=== PATIENT | male | born 1945 | race African-American/Black ===

== ENCOUNTER 2017-05-06 19:20 | Inpatient (IN) | payer MEDICARE, OTHER ==
[~2017-05-06] VITALS: Ht 185.4 cm; Wt 108.0 kg
[~2017-05-06 19:20] MED LIST: HYDR12.529 PO; LISI-186 PO; TAMS0.4C31 PO; ZOLP5TAB2 PO
[2017-05-06] MEDS ORDERED: SODIUM CHLORIDE 0.9% 1,000 ML IV ONE (19:32)
[2017-05-06] MEDS ORDERED: ONDANSETRON HCL 4MG/2ML VIAL IV STA (19:32)
[2017-05-06] MEDS ORDERED: MORPHINE SULFATE 4 MG/ML CPJ (NOT FOR IM USE) IV STA (19:32)
[2017-05-06 19:59] LABS: BASOPHILS % 0.7 % (0.0-2.0); EOSINOPHILS % 0.9 % (0.0-5.0); HEMATOCRIT. 43.6 % (42.0-52.0); LYMPHOCYTES % 20.9 % (20.0-50.0); MEAN CORPUSCULAR HEMOGLOBIN 32.9 pg (28.0-32.0); MEAN CORPUSCULAR VOLUME 95.4 fL (80.0-94.0); MEAN PLATELET VOLUME 7.6 fl (7.4-10.4); MONOCYTES % 4.5 % (2.0-8.0); PLATELET 215 x1000/uL (130-400); RED BLOOD CELL COUNT 4.57 mill/uL (4.7-6.1); RED CELL DISTRIBUTION WIDTH 13.9 % (11.6-14.6)
[2017-05-06 20:08] LABS: INR 1.1; PROTHROMBIN TIME 11.3 sec (9.4-11.6)
[2017-05-06 20:17] LABS: CARBON DIOXIDE 25 mEq/L (21-32); CHLORIDE 105 mEq/L (98-107)
[2017-05-06] MEDS ORDERED: LEVOFLOXACIN 750MG PREMIX 150 ML IV ONE (23:30)
[2017-05-06] MEDS ORDERED: MORPHINE SULFATE 4 MG/ML CPJ (NOT FOR IM USE) IV ONE (23:30)
[2017-05-06] MEDS ORDERED: LORAZEPAM 2MG/ML CPJ IV PRN (23:45)
[2017-05-07] MEDS ORDERED: LEVOFLOXACIN 500MG PREMIX 100 ML IV SCH
[2017-05-07 00:03] LABS: CLARITY URINE CLEAR (CLEAR); COLOR URINE YELLOW (YELLOW); GLUCOSE URINE NEGATIVE (NEGATIVE); KETONES URINE NEGATIVE (NEGATIVE); LEUKOCYTE ESTERASE URINE NEGATIVE (NEGATIVE); NITRITE URINE NEGATIVE (NEGATIVE); OCCULT BLOOD URINE NEGATIVE (NEGATIVE); PH URINE 6.5 (4.5-8.0); PROTEIN URINE NEGATIVE (NEGATIVE); SPECIFIC GRAVITY URINE 1.021 (1.005-1.030); UROBILINOGEN URINE 0.2 E.U./dL (0.2-1.0)
[2017-05-07 00:20] LABS: *AMPHETAMINES SCREEN URINE NEGATIVE (NEGATIVE); *BARBITURATES SCREEN URINE NEGATIVE (NEGATIVE); *BENZODIAZEPINES SCREEN URINE NEGATIVE (NEGATIVE); *COCAINE SCREEN URINE NEGATIVE (NEGATIVE); CANNABINOID URINE SCREEN NEGATIVE (NEGATIVE); METHADONE URINE SCREEN NEGATIVE (NEGATIVE); OPIATES URINE SCREEN PRESUMTIVE POSITIVE (NEGATIVE); PHENCYCLIDINE URINE SCREEN NEGATIVE (NEGATIVE)
[2017-05-07] MEDS ORDERED: PIPERACILLIN/TAZOBACTAM 3.375GM/50ML PREMIX IV NR (01:09)
[2017-05-07 01:25] VITALS: BP 155/77
[2017-05-07 04:00] VITALS: BP 155/77
[2017-05-07] MEDS: SODIUM CHLORIDE 0.9% 1,000 ML IV SCH ×3 (04:23→23:01)
[2017-05-07] MEDS: MORPHINE SULFATE 2 MG/ML CPJ (NOT FOR IM USE) IV PRN ×3 (04:40→16:47)
[2017-05-07] MEDS: METRONIDAZOLE 500 MG PREMIX 100 ML IV SCH ×2 (06:53→15:07)
[2017-05-07 08:00] VITALS: BP 134/70
[2017-05-07] MEDS: ENOXAPARIN 40MG/0.4ML SYR SUBCUT SCH (09:01)
[2017-05-07 12:00] VITALS: BP 140/72
[2017-05-07] MEDS: LISINOPRIL 5MG TABLET PO SCH (13:26)
[2017-05-07] MEDS ORDERED: DEXTROSE 50% WATER 50ML SYRINGE IV PRN (13:45)
[2017-05-07 16:00] VITALS: BP 140/74
[2017-05-07] MEDS: BLOOD SUGAR DIAGNOSTIC STRIP TEST SCH ×2 (17:20→20:09)
[2017-05-07] MEDS: INSULIN LISPRO 100 UNITS/ML SUBCUT SCH ×2 (17:50→20:09)
[2017-05-07 20:00] VITALS: BP 146/65
[2017-05-07] MEDS: TAMSULOSIN HCL 0.4MG SR CAPSULE PO SCH (20:08)
[2017-05-07] MEDS: ACETAMINOPHEN 325MG TABLET PO PRN (20:09)
[2017-05-07] MEDS ORDERED: ZOLPIDEM TARTRATE 5MG TABLET PO PRN (21:00)
[2017-05-07] MEDS: METRONIDAZOLE 500MG TABLET PO SCH (23:49)
[2017-05-07] MEDS: LEVOFLOXACIN 500MG PREMIX 100 ML IV SCH (23:52)
[2017-05-08] VITALS: BP 162/71
[2017-05-08 04:00] VITALS: BP 152/78
[2017-05-08] MEDS: BLOOD SUGAR DIAGNOSTIC STRIP TEST SCH ×4 (06:20→20:48)
[2017-05-08] MEDS: METRONIDAZOLE 500MG TABLET PO SCH ×3 (06:22→21:40)
[2017-05-08 07:46] LABS: BASOPHILS % 0.1 % (0.0-2.0); HEMATOCRIT. 40.2 % (42.0-52.0); HEMOGLOBIN. 13.8 g/dL (14.0-18.0); LYMPHOCYTES % 9.6 % (20.0-50.0); MEAN CORPUSCULAR HEMOGLOBIN 32.9 pg (28.0-32.0); MEAN CORPUSCULAR VOLUME 95.9 fL (80.0-94.0); MEAN PLATELET VOLUME 8.1 fl (7.4-10.4); MONOCYTES % 2.7 % (2.0-8.0); NEUTROPHILS % 87.6 % (40.0-76.0); PLATELET 193 x1000/uL (130-400); RED BLOOD CELL COUNT 4.19 mill/uL (4.7-6.1); RED CELL DISTRIBUTION WIDTH 13.9 % (11.6-14.6)
[2017-05-08 08:00] VITALS: BP 152/77
[2017-05-08] MEDS: MORPHINE SULFATE 2 MG/ML CPJ (NOT FOR IM USE) IV PRN ×3 (08:13→18:44)
[2017-05-08] MEDS: LISINOPRIL 5MG TABLET PO SCH (08:16)
[2017-05-08] MEDS: ENOXAPARIN 40MG/0.4ML SYR SUBCUT SCH (08:17)
[2017-05-08] MEDS: INSULIN LISPRO 100 UNITS/ML SUBCUT SCH ×4 (08:23→20:48)
[2017-05-08 08:27] LABS: CARBON DIOXIDE 26 mEq/L (21-32); CHLORIDE 102 mEq/L (98-107); PHOSPHORUS 1.9 mg/dL (2.5-4.9)
[2017-05-08 12:00] VITALS: BP 140/72
[2017-05-08] MEDS ORDERED: IOHEXOL-300 100 ML BOTTLE ONE (12:00)
[2017-05-08] MEDS ORDERED: SODIUM CHLORIDE 0.9% 10ML VIAL ONE (12:00)
[2017-05-08] MEDS ORDERED: POTASSIUM PHOS,M-BASIC-D-BASIC 30 MMOL in DEXT 5% WATER 500 ML IV NR (13:30)
[2017-05-08 16:00] VITALS: BP 155/73
[2017-05-08] MEDS: ACETAMINOPHEN 325MG TABLET PO PRN (16:18)
[2017-05-08 20:00] VITALS: BP 142/67
[2017-05-08] MEDS: TAMSULOSIN HCL 0.4MG SR CAPSULE PO SCH (20:44)
[2017-05-09] VITALS: BP 150/72
[2017-05-09] MEDS: LEVOFLOXACIN 500MG PREMIX 100 ML IV SCH ×2 (00:15→23:37)
[2017-05-09] MEDS: MORPHINE SULFATE 2 MG/ML CPJ (NOT FOR IM USE) IV PRN ×4 (00:17→16:47)
[2017-05-09 04:00] VITALS: BP 142/86
[2017-05-09] MEDS: METRONIDAZOLE 500MG TABLET PO SCH ×3 (05:53→21:19)
[2017-05-09 06:30] LABS: BASOPHILS % 0.2 % (0.0-2.0); EOSINOPHILS % 0.2 % (0.0-5.0); HEMATOCRIT. 40.3 % (42.0-52.0); LYMPHOCYTES % 8.2 % (20.0-50.0); MEAN CORPUSCULAR HEMOGLOBIN 32.9 pg (28.0-32.0); MEAN CORPUSCULAR VOLUME 94.7 fL (80.0-94.0); MEAN PLATELET VOLUME 7.9 fl (7.4-10.4); MONOCYTES % 4.8 % (2.0-8.0); NEUTROPHILS % 86.6 % (40.0-76.0); PLATELET 199 x1000/uL (130-400); RED BLOOD CELL COUNT 4.25 mill/uL (4.7-6.1); RED CELL DISTRIBUTION WIDTH 13.7 % (11.6-14.6)
[2017-05-09 07:00] LABS: CARBON DIOXIDE 23 mEq/L (21-32); CHLORIDE 104 mEq/L (98-107)
[2017-05-09] MEDS: BLOOD SUGAR DIAGNOSTIC STRIP TEST SCH ×4 (07:05→20:53)
[2017-05-09] MEDS: INSULIN LISPRO 100 UNITS/ML SUBCUT SCH ×4 (07:05→21:20)
[2017-05-09 08:00] VITALS: BP 142/81
[2017-05-09] MEDS: ENOXAPARIN 40MG/0.4ML SYR SUBCUT SCH (08:43)
[2017-05-09] MEDS: LISINOPRIL 5MG TABLET PO SCH (08:43)
[2017-05-09] MEDS ORDERED: KCL 20MEQ/100ML PREMIX 100 ML IV NR (11:00)
[2017-05-09 12:00] VITALS: BP 149/88
[2017-05-09] MEDS: DEXT 5%/0.9% NACL KCL 20MEQ/L 1,000 ML IV SCH (12:04)
[2017-05-09 16:00] VITALS: BP 155/84
[2017-05-09 20:00] VITALS: BP 144/81
[2017-05-09] MEDS: TAMSULOSIN HCL 0.4MG SR CAPSULE PO SCH (20:52)
[2017-05-10] VITALS: BP 147/82
[2017-05-10] MEDS: MORPHINE SULFATE 2 MG/ML CPJ (NOT FOR IM USE) IV PRN (01:03)
[2017-05-10 04:00] VITALS: BP 150/87
[2017-05-10] MEDS: METRONIDAZOLE 500MG TABLET PO SCH ×3 (05:33→21:12)
[2017-05-10] MEDS: BLOOD SUGAR DIAGNOSTIC STRIP TEST SCH ×4 (06:34→21:14)
[2017-05-10 07:13] LABS: BASOPHILS % 0.1 % (0.0-2.0); EOSINOPHILS % 1.8 % (0.0-5.0); HEMATOCRIT. 41.2 % (42.0-52.0); LYMPHOCYTES % 10.2 % (20.0-50.0); MEAN CORPUSCULAR HEMOGLOBIN 32.6 pg (28.0-32.0); MEAN CORPUSCULAR VOLUME 95.9 fL (80.0-94.0); MEAN PLATELET VOLUME 7.8 fl (7.4-10.4); MONOCYTES % 7.1 % (2.0-8.0); NEUTROPHILS % 80.8 % (40.0-76.0); PLATELET 223 x1000/uL (130-400); RED CELL DISTRIBUTION WIDTH 13.9 % (11.6-14.6)
[2017-05-10] MEDS: INSULIN LISPRO 100 UNITS/ML SUBCUT SCH ×4 (07:50→21:24)
[2017-05-10 08:00] VITALS: BP 140/83
[2017-05-10 08:09] LABS: CARBON DIOXIDE 27 mEq/L (21-32); CHLORIDE 106 mEq/L (98-107)
[2017-05-10] MEDS: PANTOPRAZOLE SODIUM 40 MG/VIAL IV SCH (08:42)
[2017-05-10] MEDS: DEXT 5%/0.9% NACL KCL 20MEQ/L 1,000 ML IV SCH (08:43)
[2017-05-10] MEDS: LISINOPRIL 5MG TABLET PO SCH (08:43)
[2017-05-10] MEDS: ENOXAPARIN 40MG/0.4ML SYR SUBCUT SCH (08:43)
[2017-05-10] MEDS: HYDROCODONE/ACETAMINOPHEN 5/325MG TABLET PO PRN ×2 (13:14→21:13)
[2017-05-10 16:00] VITALS: BP 133/81
[2017-05-10 20:00] VITALS: BP 137/78
[2017-05-10] MEDS: TAMSULOSIN HCL 0.4MG SR CAPSULE PO SCH (21:12)
[2017-05-11] VITALS: BP 129/77
[2017-05-11 04:00] VITALS: BP 130/80
[2017-05-11] MEDS: METRONIDAZOLE 500MG TABLET PO SCH ×3 (05:35→22:09)
[2017-05-11] MEDS: DEXT 5%/0.9% NACL KCL 20MEQ/L 1,000 ML IV SCH ×2 (05:36→22:09)
[2017-05-11] MEDS: HYDROCODONE/ACETAMINOPHEN 5/325MG TABLET PO PRN ×3 (05:36→17:53)
[2017-05-11] MEDS: MORPHINE SULFATE 4 MG/ML CPJ (NOT FOR IM USE) IV PRN (06:10)
[2017-05-11] MEDS: BLOOD SUGAR DIAGNOSTIC STRIP TEST SCH ×4 (07:19→20:51)
[2017-05-11] MEDS: INSULIN LISPRO 100 UNITS/ML SUBCUT SCH ×4 (07:50→22:13)
[2017-05-11 08:00] VITALS: BP 157/85
[2017-05-11] MEDS: LISINOPRIL 5MG TABLET PO SCH (09:25)
[2017-05-11] MEDS: PANTOPRAZOLE SODIUM 40 MG/VIAL IV SCH (09:25)
[2017-05-11] MEDS: ENOXAPARIN 40MG/0.4ML SYR SUBCUT SCH (09:26)
[2017-05-11] MEDS: LEVOFLOXACIN 500MG TABLET PO SCH (10:43)
[2017-05-11 12:00] VITALS: BP 133/79
[2017-05-11 16:00] VITALS: BP 148/88
[2017-05-11 20:00] VITALS: BP 129/87
[2017-05-11] MEDS: TAMSULOSIN HCL 0.4MG SR CAPSULE PO SCH (20:44)
[2017-05-12] VITALS: BP 153/78
[2017-05-12 04:00] VITALS: BP 146/88
[2017-05-12] MEDS: MORPHINE SULFATE 4 MG/ML CPJ (NOT FOR IM USE) IV PRN ×3 (04:33→21:17)
[2017-05-12] MEDS: METRONIDAZOLE 500MG TABLET PO SCH ×3 (06:03→22:19)
[2017-05-12] MEDS: BLOOD SUGAR DIAGNOSTIC STRIP TEST SCH ×4 (06:33→22:20)
[2017-05-12 07:02] LABS: BASOPHILS % 0.1 % (0.0-2.0); EOSINOPHILS % 0.3 % (0.0-5.0); HEMATOCRIT. 41.6 % (42.0-52.0); HEMOGLOBIN. 14.2 g/dL (14.0-18.0); LYMPHOCYTES % 8.8 % (20.0-50.0); MEAN CORPUSCULAR HEMOGLOBIN 32.6 pg (28.0-32.0); MEAN CORPUSCULAR VOLUME 95.9 fL (80.0-94.0); MEAN PLATELET VOLUME 8.1 fl (7.4-10.4); MONOCYTES % 5.8 % (2.0-8.0); PLATELET 283 x1000/uL (130-400); RED BLOOD CELL COUNT 4.34 mill/uL (4.7-6.1); RED CELL DISTRIBUTION WIDTH 14.2 % (11.6-14.6)
[2017-05-12 07:13] VITALS: BP 134/88
[2017-05-12] MEDS: INSULIN LISPRO 100 UNITS/ML SUBCUT SCH ×4 (07:50→23:06)
[2017-05-12 08:25] LABS: CARBON DIOXIDE 25 mEq/L (21-32); CHLORIDE 104 mEq/L (98-107); PHOSPHORUS 2.1 mg/dL (2.5-4.9)
[2017-05-12] MEDS: FAMOTIDINE 20MG/2ML VIAL IV SCH ×2 (09:11→21:08)
[2017-05-12] MEDS: LISINOPRIL 10MG TABLET PO SCH (09:12)
[2017-05-12] MEDS: ENOXAPARIN 40MG/0.4ML SYR SUBCUT SCH (09:12)
[2017-05-12 11:52] VITALS: BP 140/78
[2017-05-12] MEDS: LEVOFLOXACIN 500MG TABLET PO SCH (12:25)
[2017-05-12] MEDS ORDERED: LACTULOSE 20G/30ML UDC PO PRN (13:30)
[2017-05-12] MEDS ORDERED: POTASSIUM CHLORIDE 20MEQ TABLET SR PO SCH (13:30)
[2017-05-12] MEDS ORDERED: POTASSIUM PHOS,M-BASIC-D-BASIC 15 MMOL in DEXT 5% WATER 245 ML IV SCH (15:00)
[2017-05-12] MEDS: DOCUSATE SODIUM 100MG CAPSULE PO SCH (17:21)
[2017-05-12 20:00] VITALS: BP 141/85
[2017-05-12] MEDS: TAMSULOSIN HCL 0.4MG SR CAPSULE PO SCH (22:20)
[2017-05-13] VITALS: BP 139/79
[2017-05-13 04:00] VITALS: BP 132/73
[2017-05-13 06:28] LABS: BASOPHILS % 0.3 % (0.0-2.0); EOSINOPHILS % 1.6 % (0.0-5.0); HEMATOCRIT. 39.2 % (42.0-52.0); HEMOGLOBIN. 13.2 g/dL (14.0-18.0); LYMPHOCYTES % 8.4 % (20.0-50.0); MEAN CORPUSCULAR HEMOGLOBIN 32.3 pg (28.0-32.0); MEAN CORPUSCULAR VOLUME 95.9 fL (80.0-94.0); MEAN PLATELET VOLUME 7.9 fl (7.4-10.4); NEUTROPHILS % 84.7 % (40.0-76.0); PLATELET 303 x1000/uL (130-400); RED BLOOD CELL COUNT 4.09 mill/uL (4.7-6.1); RED CELL DISTRIBUTION WIDTH 14.1 % (11.6-14.6)
[2017-05-13 07:30] LABS: CARBON DIOXIDE 30 mEq/L (21-32); CHLORIDE 101 mEq/L (98-107)
[2017-05-13] MEDS: METRONIDAZOLE 500MG TABLET PO SCH ×3 (07:43→21:50)
[2017-05-13] MEDS: BLOOD SUGAR DIAGNOSTIC STRIP TEST SCH ×4 (07:44→21:47)
[2017-05-13 08:00] VITALS: BP 137/76
[2017-05-13] MEDS: DOCUSATE SODIUM 100MG CAPSULE PO SCH ×2 (08:50→18:33)
[2017-05-13] MEDS: INSULIN LISPRO 100 UNITS/ML SUBCUT SCH ×4 (08:50→22:53)
[2017-05-13] MEDS: LISINOPRIL 10MG TABLET PO SCH (08:54)
[2017-05-13] MEDS: ENOXAPARIN 40MG/0.4ML SYR SUBCUT SCH (08:56)
[2017-05-13] MEDS: FAMOTIDINE 20MG/2ML VIAL IV SCH ×2 (08:57→21:03)
[2017-05-13] MEDS ORDERED: POTASSIUM CHLORIDE 20MEQ TABLET SR PO NR (09:15)
[2017-05-13] MEDS: LEVOFLOXACIN 500MG TABLET PO SCH (10:43)
[2017-05-13 12:00] VITALS: BP 130/70
[2017-05-13 16:00] VITALS: BP 120/71
[2017-05-13 20:00] VITALS: BP 113/72
[2017-05-13] MEDS ORDERED: DIATR MEGLU/DIATRIZOATE SOLN 30ML PO SCH (21:00)
[2017-05-13] MEDS: MORPHINE SULFATE 4 MG/ML CPJ (NOT FOR IM USE) IV PRN (21:03)
[2017-05-13] MEDS: TAMSULOSIN HCL 0.4MG SR CAPSULE PO SCH (21:51)
[2017-05-13] MEDS: ENOXAPARIN 30MG/0.3ML SYR SUBCUT SCH (21:52)
[2017-05-14] VITALS: BP 139/68
[2017-05-14 04:00] VITALS: BP 135/81
[2017-05-14] MEDS: METRONIDAZOLE 500MG TABLET PO SCH ×2 (06:00→14:00)
[2017-05-14] MEDS ORDERED: DIATR MEGLU/DIATRIZOATE SOLN 30ML PO NR ×2 (06:00→08:00)
[2017-05-14 06:40] LABS: BASOPHILS % 0.4 % (0.0-2.0); EOSINOPHILS % 1.5 % (0.0-5.0); HEMATOCRIT. 36.6 % (42.0-52.0); HEMOGLOBIN. 12.4 g/dL (14.0-18.0); MEAN CORPUSCULAR HEMOGLOBIN 32.2 pg (28.0-32.0); MEAN CORPUSCULAR VOLUME 94.9 fL (80.0-94.0); MEAN PLATELET VOLUME 7.9 fl (7.4-10.4); MONOCYTES % 5.5 % (2.0-8.0); NEUTROPHILS % 81.6 % (40.0-76.0); PLATELET 341 x1000/uL (130-400); RED BLOOD CELL COUNT 3.86 mill/uL (4.7-6.1); RED CELL DISTRIBUTION WIDTH 14.1 % (11.6-14.6)
[2017-05-14 07:27] LABS: CARBON DIOXIDE 29 mEq/L (21-32); CHLORIDE 101 mEq/L (98-107)
[2017-05-14] MEDS: BLOOD SUGAR DIAGNOSTIC STRIP TEST SCH ×2 (07:47→12:13)
[2017-05-14] MEDS: INSULIN LISPRO 100 UNITS/ML SUBCUT SCH ×2 (07:50→12:50)
[2017-05-14 07:57] VITALS: BP 146/71
[2017-05-14] MEDS ORDERED: SODIUM CHLORIDE 0.9% 10ML VIAL ONE (11:47)
[2017-05-14] MEDS ORDERED: IOHEXOL-300 100 ML BOTTLE ONE (11:47)
[2017-05-14 12:00] VITALS: BP 126/77
[2017-05-14] MEDS: LEVOFLOXACIN 500MG TABLET PO SCH (12:19)
[2017-05-14] MEDS: DOCUSATE SODIUM 100MG CAPSULE PO SCH ×2 (12:20→16:53)
[2017-05-14] MEDS: LISINOPRIL 10MG TABLET PO SCH (12:20)
[2017-05-14] MEDS: ENOXAPARIN 30MG/0.3ML SYR SUBCUT SCH (12:21)
[2017-05-14] MEDS: FAMOTIDINE 20MG/2ML VIAL IV SCH (12:44)
[2017-05-14 16:00] VITALS: BP 121/76
== END 2017-05-14 17:05 | disposition left against medical advice (07) | DRG 872 ==
LOC: ER 19:20 → 6EST 23:33 → SUPCPDRO 23:39 → ENRESERV 05-07 01:38
PROVIDERS: ADMIT Internal Medicine Nephrology; ATTEND Internal Medicine Nephrology
DX: A41.9 Sepsis, unspecified organism (principal); K56.0 Paralytic ileus; K66.8 Other specified disorders of peritoneum; K57.20 Diverticulitis of large intestine with perforation and abscess without bleeding; E83.39 Other disorders of phosphorus metabolism; E11.9 Type 2 diabetes mellitus without complications; I10 Essential (primary) hypertension; E78.00 Pure hypercholesterolemia, unspecified; Z53.21 Procedure and treatment not carried out due to patient leaving prior to being seen by health care provider; M54.9 Dorsalgia, unspecified; N40.0 Benign prostatic hyperplasia without lower urinary tract symptoms; E66.9 Obesity, unspecified; E87.6 Hypokalemia; K42.9 Umbilical hernia without obstruction or gangrene; Z68.31 Body mass index [BMI] 31.0-31.9, adult
CPT/HCPCS: 36415; 74176; 74177; 80048; 80053; 80305; 81003; 82962; 83690; 83735; 84100; 84145; 84443; 85025; 85610; 93970; 96361; 96365; 96366; 96375; 97162; 99285; A4216; C1893; C9113; J1650; J1815; J1956; J2270; J2405; J3480; J3490; J7030; J7060; Q9963; Q9967